=== PATIENT | female | born 1990 | race Caucasian/White ===

== ENCOUNTER 2021-08-14 13:46 | Emergency (ER) | payer OTHER, MEDICAID, SELFPAY ==
[2021-08-14] VITALS (13 sets, daily range): BP systolic 100–115; BP diastolic 58–60; PULSE 66–95; RESP 16–18; TEMP 36.9; O2SAT 95–99; BMI 25.0
--- NOTE | 2021-08-14 15:00 | PC.NURSE ---
Pt states she has seizure-like episodes and her consciousness leaves her body and she feels like she is floating above her body then she focuses her eyes and comes back into her body.
--- NOTE | 2021-08-14 17:20 | ED.SEIZURE ---
HPI - Seizure General Chief Complaint: Seizure Stated Complaint: Thinks she had seizure last night Time Seen by Provider: 08/14/21 16:53 Source: patient Mode of arrival: Ambulatory Limitations: no limitations History of Present Illness HPI Narrative: This is a 31-year-old female who thinks she may have had a seizure last night. She states she was in bed short of falling asleep she thought she had sort of sleep paralysis she has had. But she also but she was shaking 1 point. She states she woke up and she had abrasions or bites on the side of her tongue on each side. She states she woke up with in the morning. She had slept through the night. She did not have any bowel or bladder incontinence. She does not hurt anywhere. No headaches. No chest pain or shortness of breath. No nausea or vomiting. No other GI or urinary symptoms. She has not had any fevers or chills. She has a history of factor 5 Leiden had a stroke related to this. She is not on any daily medications. She did ingest cranium on Wednesday but has not had anything else since then. She uses THC regularly. She denies any recent alcohol use. She denies any surgeries. This was unwitnessed and there was no in that saw any seizure activity and she is not sure even if it was a seizure. She relates that occasionally she will have episodes where she seems like she is short a fluttery and not inside her body and last for 20-30 seconds and resolved. Review of Systems Review of Systems ROS Unobtainable: All systems reviewed & are unremarkable except as noted in HPI and below Patient History Social History Smoking Status: Never smoker Smoking Status: Never smoker alcohol intake frequency: 0-2 drinks per day Substance Use Type: marijuana Exam Narrative Exam Narrative: GEN: well nourished, well appearing female, alert and oriented x 3, patient appears to be in mild distress. HEENT: Atraumatic, pupils are equal round reactive to light, extraocular movements are intact, nares are clear, TMs are clear with no fluid, there is no conjunctival pallor. Throat is clear without any exudates, erythema, tonsillar enlargement or uvular deviation HEART: Regular rate and rhythm without murmur, clicks, rubs. Pulses are equal in upper and lower extremities LUNGS:Lungs clear to auscultation, no wheezes, rales, crackles, chest moves symmetrically ABD:bowel sounds normal, soft, non-tender, no guarding, rebound, rigidity, no masses noted, no hepatosplenomegaly :No CVA tenderness MSCL: Non-tender, no muscle atrophy, muscles strength 5/5 upper and lower extremities, full range of motion, normal gait NEURO:CN 2-12 intact, sensation normal, SKIN: Rash, erythema or other changes. Initial Vital Signs Initial Vital Signs: Vital Signs Temperature 98.5 F 08/14/21 13:51 Pulse Rate 95 H 08/14/21 13:51 Respiratory Rate 16 08/14/21 13:51 Blood Pressure 115/58 L 08/14/21 13:51 Pulse Oximetry 99 08/14/21 13:51 Course Orders Ordered: ED Orders 08/14/21 17:31 CT head/brain wo con Stat EKG-12 Lead Stat 08/14/21 17:55 Urine Drug Screen, Rapid Stat Urine Microscopic Stat 08/14/21 18:00 Basic Metabolic Panel Stat Complete Blood Count AUTO DIFF Stat Ethanol (ETOH) Stat Magnesium Stat Prolactin Stat Vital Signs Vital signs: Vital Signs - 8 hr 08/14/21 13:51 08/14/21 14:53 08/14/21 14:55 Temperature 98.5 F Pulse Rate 95 H 85 84 Respiratory Rate 16 Blood Pressure 115/58 L 107/60 Pulse Oximetry 99 97 98 08/14/21 15:00 08/14/21 15:11 08/14/21 15:30 Temperature Pulse Rate 84 80 80 Respiratory Rate 18 Blood Pressure 107/60 Pulse Oximetry 98 97 97 08/14/21 16:00 08/14/21 16:30 08/14/21 17:00 Temperature Pulse Rate 75 82 81 Respiratory Rate Blood Pressure Pulse Oximetry 96 95 96 08/14/21 17:30 08/14/21 18:00 08/14/21 18:26 Temperature Pulse Rate 76 66 66 Respiratory Rate 17 Blood Pressure 107/60 100/58 L Pulse Oximetry 96 99 97 08/14/21 18:30 Temperature Pulse Rate 72 Respiratory Rate Blood Pressure Pulse Oximetry 97 MDM - Seizure Lab Data Result diagrams: 08/14/21 18:00 08/14/21 18:00 Labs: Lab Results 08/14/21 08/14/21 08/14/21 Range/Units 17:55 18:00 18:00 WBC 6.8 (4.5-11.0) X10^3/uL RBC 4.02 (4.0-5.2) X10^6/uL Hgb 12.3 (12.0-16.0) g/dL Hct 36.4 (36-46) % MCV 90.3 (80-100) fL MCH 30.7 (26-34) PG MCHC 34.0 (30-36) % RDW 13.3 (11.6-14.8) % Plt Count 271 (150-400) X10^3/uL Neut % (Auto) 55.2 (50-75) % Lymph % (Auto) 35.2 (25-40) % [place] % (Auto) 8.0 (3-14) % Eos % (Auto) 1.0 L (2-4) % Baso % (Auto) 0.6 (0-2) % Neut # (Auto) 3800 (5741-4135) /uL Lymph # (Auto) 2400 (0965-2752) /uL [place] # (Auto) 500 (0-900) /uL Eos # (Auto) 100 (0-450) /uL Baso # (Auto) 0 (0-100) /uL Sodium 138 (137-145) mmol/L Potassium 3.7 (3.4-5.1) mmol/L Chloride 108 H (98-107) mmol/L Carbon Dioxide 25 (22-32) mmol/L BUN 14 (7-17) mg/dL Creatinine 0.66 (0.52-1.04) mg/dL Estimated GFR > 60.0 (>60) mL/min BUN/Creatinine Ratio 21.2 (6-22) Glucose 94 (70-100) mg/dL Calcium 9.1 (8.4-10.2) mg/dL Magnesium 2.1 (1.6-2.3) mg/dL Prolactin 14.9 (3.0-18.6) ng/mL U Opiates 300ng/mL cut Negative (Negative) Ur Oxycodone Screen Negative (Negative) Urine Methadone Screen Negative (Negative) Ur Barbiturates Screen Negative (Negative) U Tricyclic Antidepress Negative (Negative) Ur Phencyclidine Scrn Negative (Negative) Ur Amphetamines Screen Negative (Negative) U Methamphetamines Scrn Negative (Negative) Ur MDMA Scrn (Ecstasy) Negative (Negative) U Benzodiazepines Scrn Negative (Negative) Urine Cocaine Screen Negative (Negative) U Marijuana (THC) Screen Positive H (Negative) Ethyl Alcohol < 10 ( - 10) mg/dL Point of Care Testing Test Results Negative Urine Dip Bedside Urine Glucose Negative Bedside Urine Bilirubin - Negative Bedside Urine Ketone + 15 Urine Specific [place] 1.025 Bedside Urine Occult Blood ++ Bedside Urine pH 6.0 Bedside Urine Protein - Negative Bedside Urine Urobilinogen - Negative Bedside Urine Nitrite - Negative Bedside Urine Leukocytes - Negative Esterase Imaging Data CT scan - head: Radiologist's Impression: Launch?[address] [address] [address] Scan Report Signed Patient: Colette Avalos MR#: [id number] : 1990 Acct:[id number] Age/Sex: 31 / F Date of Service: 08/14/21 Loc: ED Accession Number: [id number] ?? Procedure: CT head/brain wo con Ordering Provider: Jessica Alfredo D.O. PROCEDURE:? CT HEAD/BRAIN WO CON ? INDICATIONS:? ? seizure activity last night vs other.? hx CVA ? TECHNIQUE:? Noncontrast 4.5 mm thick angled axial sections acquired from the foramen magnum to the vertex, with coronal and sagittal reformats.? For radiation dose reduction, the following was used:? automated exposure control, adjustment of mA and/or kV according to patient size.? ? COMPARISON:? None. ? FINDINGS:? Image quality:? Excellent.? ? CSF spaces:? Basal cisterns are patent.? No extra-axial fluid collections.? Ventricles are normal in size and shape.? ? Brain:? No midline shift.? No intracranial masses or hemorrhage.? Marmolejo-white matter interface is normal.? There is a focal area of marmolejo matter volume loss and encephalomalacia involving the right parietal region consistent with history of prior stroke. ? Skull and face:? Calvarium and visualized facial bones are intact, without suspicious lesions.? ? Sinuses:? Visualized sinuses and mastoids are clear.? ? IMPRESSION:? 1. No CT evidence of acute process.? 2. Remote right parietal infarct.? ? Dictated by: Elisabeth Lopez M.D. on 08/14/2021 at 18:08 ? ? Approved by: Elisabeth Lopez M.D. on 08/14/2021 at 18:11?? ECG Data Attestation: I personally reviewed and interpreted this ECG as follows: Interpretation: Sinus rhythm, rate of 64 [place] 136 QRS of 78 QTC [address]. No acute ST changes appreciated. MDM Narrative Medical decision making narrative: This is a 31-year-old female who thinks she may have a had a seizure in her sleep last night. She felt like she was still and then had some shaking but was aware. She then went to sleep and woke up this morning and had abrasions on the side of her tongue like she had bit down on it. She has had episodes where she feels like she is not in her body and she is floating around sometimes even while driving but they will last for 20 seconds at the most and then resolve. She has reassuring imaging and labs. She does have a remote history of stroke secondary to Factor 5 Leiden. This was noted on her imaging. She does not have any changes today suggestive of TIA or stroke. Discharge Plan Departure Patient Disposition: Home Clinical Impression: Abrasion of tongue Activity Restrictions/Additional Instructions: Your imaging and labs today are reassuring. Your CT of your head does show a old stroke. I would follow-up with your physician and possibly with Neurology if you continue to have any changes or episodes or concerning events. Referral is included below. Please return for seizure-like activity, new or worsening symptoms, severe headaches, passing out, new numbness, tingling or weakness, facial droop or other new or concerning symptoms. Referrals: Edilson Phan MD [Non-Staff] -
--- NOTE | 2021-08-14 17:31 | DI.CT.S_ITS ---
PROCEDURE: CT HEAD/BRAIN WO CON INDICATIONS: ? seizure activity last night vs other. hx CVA TECHNIQUE: Noncontrast 4.5 mm thick angled axial sections acquired from the foramen magnum to the vertex, with coronal and sagittal reformats. For radiation dose reduction, the following was used: automated exposure control, adjustment of mA and/or kV according to patient size. COMPARISON: None. FINDINGS: Image quality: Excellent. CSF spaces: Basal cisterns are patent. No extra-axial fluid collections. Ventricles are normal in size and shape. Brain: No midline shift. No intracranial masses or hemorrhage. Marmolejo-white matter interface is normal. There is a focal area of marmolejo matter volume loss and encephalomalacia involving the right parietal region consistent with history of prior stroke. Skull and face: Calvarium and visualized facial bones are intact, without suspicious lesions. Sinuses: Visualized sinuses and mastoids are clear. IMPRESSION: 1. No CT evidence of acute process. 2. Remote right parietal infarct. Dictated by: Elisabeth Lopez M.D. on 08/14/2021 at 18:08 Approved by: Elisabeth Lopez M.D. on 08/14/2021 at 18:11
[2021-08-14 18:09] LABS: UR Morphine/Opiate cutoff 300 Negative (Negative); Ur Creatinine Normal (Normal); Ur Specific Gravity Normal (Normal); Urine Amphetamines Negative (Negative); Urine Barbiturates Negative (Negative); Urine Benzodiazepines Negative (Negative); Urine Cocaine Negative (Negative); Urine MDMA Negative (Negative); Urine Methadone Negative (Negative); Urine Methamphetamines Negative (Negative); Urine Oxycodone Negative (Negative); Urine Phencyclidine Negative (Negative); Urine Tetrahydrocannabinol Positive (Negative); Urine Tricyclic Antidepressant Negative (Negative); Urine pH Normal (Normal)
[2021-08-14 18:10] LABS: Add Manual Diff / Slide Review NO; Basophils Absolute Auto 0 /uL (0-100); Basophils Percent Auto 0.6 % (0-2); Eosinophils Absolute Auto 100 /uL (0-450); Hematocrit 36.4 % (36-46); Hemoglobin 12.3 g/dL (12.0-16.0); Lymphocytes Absolute Auto 2400 /uL (1100-4500); Lymphocytes Percent Auto 35.2 % (25-40); Mean Corpuscular Hemoglobin 30.7 PG (26-34); Mean Corpuscular Volume 90.3 fL (80-100); Monocytes Absolute Auto 500 /uL (0-900); Neutrophils Absolute Auto 3800 /uL (1500-7000); Neutrophils Percent Auto 55.2 % (50-75); Platelet Count 271 X10^3/uL (150-400); Red Blood Cell Count 4.02 X10^6/uL (4.0-5.2); Red Cell Distribution Width 13.3 % (11.6-14.8); White Blood Cell Count 6.8 X10^3/uL (4.5-11.0)
[2021-08-14 18:19] LABS: BUN Creatinine Ratio 21.2 (6-22); Blood Urea Nitrogen 14 mg/dL (7-17); Calcium 9.1 mg/dL (8.4-10.2); Carbon Dioxide 25 mmol/L (22-32); Chloride 108 mmol/L (98-107); Estimated Glomerular Filt Rate > 60.0 mL/min (>60); Ethanol (ETOH) < 10 mg/dL; Glucose 94 mg/dL (70-100); HEMOLYSIS < 15 (0-50); Magnesium 2.1 mg/dL (1.6-2.3); Potassium 3.7 mmol/L (3.4-5.1); Sodium 138 mmol/L (137-145)
[2021-08-14 18:35] LABS: Prolactin 14.9 ng/mL (3.0-18.6)
[2021-08-14 20:03] LABS: Bacteria Urine None Seen; Culture Indicated Urine Cult Not Indicated; RBC Urine None Seen (0-5/HPF); Squamous Epithelial Cell Urine 0-1 /HPF (0-5/HPF); WBC Urine 0-1/HPF (0-5/HPF)
== END 2021-08-14 19:14 | disposition home or self-care (01) ==
PROVIDERS: Emergency Provider Emergency Medicine
DX: S00.512A Abrasion of oral cavity, initial encounter (principal); R03.1 Nonspecific low blood-pressure reading; X58.XXXA Exposure to other specified factors, initial encounter; Z86.73 Personal history of transient ischemic attack (TIA), and cerebral infarction without residual deficits
CPT/HCPCS: 36415; 70450; 80048; 80305; 80320; 81003; 81015; 81025; 83735; 84146; 85025; 93005; 99283; 99284

== ENCOUNTER → 2022-10-27 11:21 | Outpatient (CLI) | payer OTHER, MEDICAID, SELFPAY | PROVIDERS: Visit Provider Physician Assistant | DX: T30.0 Burn of unspecified body region, unspecified degree (principal) | CPT/HCPCS: 87070; 87075; 87205 ==

== ENCOUNTER → 2023-07-07 14:02 | Outpatient (CLI) | payer OTHER, MEDICAID, SELFPAY ==
[2023-07-07 19:55] LABS: Add Manual Diff / Slide Review NO; Basophils Absolute Auto 100 /uL (0-100); Basophils Percent Auto 0.9 % (0-2); Eosinophils Absolute Auto 100 /uL (0-450); Eosinophils Percent Auto 1.2 % (2-4); Hematocrit 40.8 % (36-46); Hemoglobin 13.7 g/dL (12.0-16.0); Lymphocytes Absolute Auto 2600 /uL (1100-4500); Lymphocytes Percent Auto 40.5 % (25-40); Mean Corpuscular HGB Conc 33.6 % (30-36); Mean Corpuscular Hemoglobin 30.9 PG (26-34); Mean Corpuscular Volume 91.8 fL (80-100); Monocytes Absolute Auto 500 /uL (0-900); Monocytes Percent Auto 7.3 % (3-14); Neutrophils Absolute Auto 3200 /uL (1500-7000); Neutrophils Percent Auto 50.1 % (50-75); Platelet Count 356 X10^3/uL (150-400); Red Blood Cell Count 4.45 X10^6/uL (4.0-5.2); White Blood Cell Count 6.5 X10^3/uL (4.5-11.0)
[2023-07-07 20:08] LABS: Alanine Aminotransferase 18 IU/L (<35); Albumin 4.6 g/dL (3.5-5.0); Albumin Globulin Ratio 1.5 (1.0-2.8); Alkaline Phosphatase 44 U/L (38-126); Aspartate Aminotransferase 26 IU/L (14-36); BUN Creatinine Ratio 22.2 (6-22); Bilirubin Total 0.6 mg/dL (0.2-1.3); Blood Urea Nitrogen 14 mg/dL (7-17); Calcium 10.1 mg/dL (8.4-10.2); Carbon Dioxide 27 mmol/L (22-32); Chloride 100 mmol/L (98-107); Estimated Glomerular Filt Rate > 60 mL/min (>60); Glucose 84 mg/dL (70-100); HEMOLYSIS < 15 (0-50); Sodium 136 mmol/L (137-145); Total Protein 7.6 g/dL (6.3-8.2)
[2023-07-07 20:33] LABS: Free T3, Triiodothyronine Free 3.97 pg/mL (2.77-5.27); Free T4, Direct Thyroxine 1.04 ng/dL (0.78-2.19)
[2023-07-07 20:46] LABS: Ferritin 34 ng/mL (6-137)
[2023-07-07 20:47] LABS: Thyroid Stimulating Hormone 0.964 uIU/mL (0.47-4.68)
== END ==
PROVIDERS: Visit Provider Naturopath
DX: Z13.0 Encounter for screening for diseases of the blood and blood-forming organs and certain disorders involving the immune mechanism (principal); Z13.29 Encounter for screening for other suspected endocrine disorder; R10.9 Unspecified abdominal pain; R19.7 Diarrhea, unspecified; R19.5 Other fecal abnormalities; Z13.1 Encounter for screening for diabetes mellitus; B35.6 Tinea cruris
CPT/HCPCS: 80053; 82728; 84439; 84443; 84481; 85025

== ENCOUNTER → 2024-09-26 10:16 | Outpatient (CLI) | payer OTHER, SELFPAY | PROVIDERS: PCP Physician Assistant Medical; Visit Provider Physician Assistant | DX: J02.9 Acute pharyngitis, unspecified (principal) | CPT/HCPCS: 87070; 87880 ==

== ENCOUNTER 2024-11-19 09:00 | Emergency (ER) | payer OTHER, SELFPAY ==
[2024-11-19 09:27] VITALS: BP 116/71; PULSE 79; RESP 16; TEMP 36.6; O2SAT 99; BMI 24.7
--- NOTE | 2024-11-19 09:28 | ED_ITS ---
HPI - Seizure General Chief Complaint: Seizure Stated Complaint: seizure during the night Time Seen by Provider: 11/19/24 09:13 History of Present Illness HPI Narrative: Patient is a 34-year-old female presenting today with possible seizure last night. She feels like she was having up sounds seizures where she was staring off into space in her eyes or fluttering. This has been going on for some time she says that her friends have noticed this. Last night she felt that she had a shaking episode she was not aware. She does report that she woke up in her bed was covered urine. She says that she has been under an intense amount of stress lately she smoked 2 cigarettes prior to going to bed and was throwing up beforehand. Denies any alcohol use. She does not typically smoke cigarettes. 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 She was not taking aspirin she has not been followed. He has been trying to get into a neurologist but the closest they can get her in is February She was seen evaluated here in 2020 with something similar but sounds like it was more of a sleep paralysis. Related Data Allergies Allergy/AdvReac Type Severity Reaction Status Date / Time clindamycin [From Cleocin] Allergy Mild Rash Verified 11/19/24 09:27 Patient History Social History Smoking Status: Never smoker Smoking Status: Never smoker alcohol intake frequency: 0-2 drinks per day Exam Initial Vital Signs Initial Vital Signs: Vital Signs Temperature 97.9 F 11/19/24 09:27 Pulse Rate 79 11/19/24 09:27 Respiratory Rate 16 11/19/24 09:27 Blood Pressure 116/71 11/19/24 09:27 Pulse Oximetry 99 11/19/24 09:27 Oxygen Delivery Method Room Air 11/19/24 09:27 GENERAL: Alert pleasant 34-year-old female and in no acute distress. HEENT: Head atraumatic,EOMI, pupils reactive, face symmetric, moist mucous membranes, she did bite her tongue on the right side though active bleeding CARDIOVASCULAR: Regular rate and rhythm without murmurs, rubs or gallops. RESPIRATORY: Breath sounds equal bilaterally, no wheezes rales or rhonchi. ABDOMEN: Soft, nontender. Normoactive bowel sounds all 4 quadrants. No guarding or rebound. EXTREMITIES: Normal range of motion, no clubbing or edema. Neurovascularly intact NEUROLOGICAL: Alert and oriented x4.Normal gait and speech. Cranial nerves II through XII grossly intact. [employer] strength equal bilaterally SKIN: Warm, dry, no laceration, no petechiae, no rashes or lesions. Course Orders Ordered: ED Orders 11/19/24 09:23 CBC Auto Diff [Complete Blood Count AUTO DIFF] Stat CMP [Comprehensive Metabolic Panel] Stat 11/19/24 09:37 EKG-12 Lead Stat 11/19/24 09:42 CT head/brain wo con Stat 11/19/24 11:04 Urine Drug Screen, Rapid Stat Vital Signs Vital signs: Vital Signs - 8 hr 11/19/24 09:27 11/19/24 11:48 11/19/24 12:00 Temperature 97.9 F 98.2 F Pulse Rate 79 75 85 Respiratory Rate 16 16 16 Blood Pressure 116/71 110/69 144/79 H Pulse Oximetry 99 97 97 Oxygen Delivery Method Room Air Room Air Room Air MDM - Seizure Lab Data 11/19/24 09:23 11/19/24 09:23 Labs: Lab Results 11/19/24 11/19/24 Range/Units 09:23 11:04 WBC 10.3 (4.5-11.0) X10^3/uL RBC 4.34 (4.0-5.2) X10^6/uL Hgb 13.4 (12.0-16.0) g/dL Hct 39.6 (36-46) % MCV 91.4 (80-100) fL MCH 31.0 (26-34) PG MCHC 33.9 (30-36) % RDW 12.7 (11.6-14.8) % Plt Count 371 (150-400) X10^3/uL Neut % (Auto) 68.7 (50-75) % Lymph % (Auto) 21.3 L (25-40) % [place] % (Auto) 9.0 (3-14) % Eos % (Auto) 0.1 L (2-4) % Baso % (Auto) 0.9 (0-2) % Neut # (Auto) 7100 H (0279-4522) /uL Lymph # (Auto) 2200 (6093-2915) /uL [place] # (Auto) 900 (0-900) /uL Eos # (Auto) 0 (0-450) /uL Baso # (Auto) 100 (0-100) /uL Sodium 136 L (137-145) mmol/L Potassium 3.9 (3.4-5.1) mmol/L Chloride 103 (98-107) mmol/L Carbon Dioxide 22 (22-32) mmol/L BUN 9 (7-17) mg/dL Creatinine 0.61 (0.52-1.04) mg/dL Estimated GFR > 60 (>60) mL/min BUN/Creatinine Ratio 14.8 (6-22) Glucose 108 H (70-100) mg/dL Calcium 9.3 (8.4-10.2) mg/dL Total Bilirubin 0.7 (0.2-1.3) mg/dL AST 37 H (14-36) IU/L ALT 25 (<35) IU/L Alkaline Phosphatase 38 (38-126) U/L Total Protein 7.5 (6.3-8.2) g/dL Albumin 4.6 (3.5-5.0) g/dL Globulin 2.9 (1.7-4.1) g/dL Albumin/Globulin Ratio 1.6 (1.0-2.8) U Opiates 300ng/mL cut Negative (Negative) Ur Oxycodone Screen Negative (Negative) Urine Methadone Screen Negative (Negative) Ur Barbiturates Screen Negative (Negative) U Tricyclic Antidepress Negative (Negative) Ur Phencyclidine Scrn Negative (Negative) Ur Amphetamines Screen Negative (Negative) U Methamphetamines Scrn Negative (Negative) Ur MDMA Scrn (Ecstasy) Negative (Negative) U Benzodiazepines Scrn Negative (Negative) Urine Cocaine Screen Negative (Negative) U Marijuana (THC) Screen Positive H (Negative) Urine pH Normal (Normal) Urine Specific [place] Normal (Normal) Ur Creatinine Normal (Normal) Point of Care Testing Test Results Negative Urine Dip Bedside Urine Glucose Negative Bedside Urine Bilirubin - Negative Bedside Urine Ketone - Negative Urine Specific [place] 1.010 Bedside Urine Occult Blood - Negative Bedside Urine pH 6.0 Bedside Urine Protein - Negative Bedside Urine Urobilinogen - Negative Bedside Urine Nitrite - Negative Bedside Urine Leukocytes - Negative Esterase Imaging Data CT scan - head: Radiologist's Impression: PROCEDURE: CT HEAD/BRAIN WO CON INDICATIONS: new onset seizure TECHNIQUE: Noncontrast 4.5 mm thick angled axial sections acquired from the foramen magnum to the vertex, with coronal and sagittal reformats. For radiation dose reduction, the following was used: automated exposure control, adjustment of mA and/or kV according to patient size. COMPARISON: [facility], CT, CT HEAD/BRAIN WO CON, 08/14/2021, 17:38. FINDINGS: Image quality: Diagnostic. CSF spaces: Basal cisterns are patent. No extra-axial fluid collections. Ventricles are normal in size and shape. Brain: No midline shift. No intracranial masses or hemorrhage. Marmolejo-white matter interface is normal. Right parietal encephalomalacia is consistent with the given history of prior stroke. Skull and face: Calvarium and visualized facial bones are intact, without suspicious lesions. Sinuses: Visualized sinuses and mastoids are clear. IMPRESSION: No acute intracranial pathology. Dictated by: Marily Andres M.D. on 11/19/2024 at 9:04 Approved by: Marily Andres M.D. on 11/19/2024 at 9:06 ECG Data Attestation: I personally reviewed and interpreted this ECG as follows: Prior ECG tracings: available for review Interpretation: Normal sinus rhythm rate 80 CT interval 130 QRS [address] changes similar to previous EKGs MDM Narrative Medical decision making narrative: MDM CC: Seizure Complicating co-morbidities: Factor 5 Leiden with history of cavernous thrombosis not taking aspirin Medical records reviewed: Previous ED visit reviewed in 2020 Differential considered: Exam documented above, pertinent findings include: Alert awake 34-year-old female who does have evidence of tongue injury. She was neurologically intact Lab Test results independently reviewed as above. Pertinent findings: CBC no anemia or leukocytosis CMP no electrolyte abnormalities no MERVAT AST slightly elevated at 37 Urinalysis negative for and infection UDS is positive for marijuana Independently reviewed EKG as above No arrhythmia or prolonged QTC Imaging studies independently reviewed: Head CT no intracranial process Treatments: None Re-evaluations: Patient remained stable Discussion: Patient 34-year-old female who presents today after seizure. It sound like she had a tonic-clonic seizure. She had urinary incontinence head there is evidence of tongue biting. Electrolytes head CT and ED workup overall reassuring. She has not having any focal deficits or dizziness to suggest cavernous thrombus. She denies alcohol use do not think withdrawal seizure. It sounds like she has been having some sort of up sounds or small seizures. She has an appointment with neurology but not until February. We talked about no driving until cleared by Neurology. Hard to say what it has been going on at home. She did not have a seizure in 2020 sounds like it was sleep paralysis she did not have any of these other symptoms at that time. This does sound like a true 1st seizure. No indications to start antiseizure medication at this time but if she has a recurrent seizure may require treatment Discharge Plan Departure Patient Disposition: Home Clinical Impression: Seizure Instructions: DI for Seizure Disorder -- Adult Activity Restrictions/Additional Instructions: NO DRIVING UNTIL CLEARED BY NEUROLOGY *You have been diagnosed with seizure *What to do: It does sound like you had a seizure today. Blood work and head CT overall reassuring. I would avoid alcohol make she was sleeping and eating regularly. At this time no seizure medication however if you should have a recurrent seizure please return to ED *Continue to take medications as directed Aspirin daily *Follow up with your primary care provider in 2-3 days or call [phone] *Return to ER if you should have recurrent seizure, or any new, worsening or concerning symptoms Referrals: Lizzette Wells PA-C [Primary Care Provider] - Stand Alone Forms: Patient Portal/API/Survey
--- NOTE | 2024-11-19 09:37 | EKG_ITS ---
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
--- NOTE | 2024-11-19 09:42 | DI.CT.S_ITS ---
PROCEDURE: CT HEAD/BRAIN WO CON INDICATIONS: new onset seizure TECHNIQUE: Noncontrast 4.5 mm thick angled axial sections acquired from the foramen magnum to the vertex, with coronal and sagittal reformats. For radiation dose reduction, the following was used: automated exposure control, adjustment of mA and/or kV according to patient size. COMPARISON: [facility], CT, CT HEAD/BRAIN WO CON, 08/14/2021, 17:38. FINDINGS: Image quality: Diagnostic. CSF spaces: Basal cisterns are patent. No extra-axial fluid collections. Ventricles are normal in size and shape. Brain: No midline shift. No intracranial masses or hemorrhage. Marmolejo-white matter interface is normal. Right parietal encephalomalacia is consistent with the given history of prior stroke. Skull and face: Calvarium and visualized facial bones are intact, without suspicious lesions. Sinuses: Visualized sinuses and mastoids are clear. IMPRESSION: No acute intracranial pathology. Dictated by: Marily Andres M.D. on 11/19/2024 at 9:04 Approved by: Marily Andres M.D. on 11/19/2024 at 9:06
[2024-11-19 09:52] LABS: Add Manual Diff / Slide Review NO; Basophils Absolute Auto 100 /uL (0-100); Basophils Percent Auto 0.9 % (0-2); Eosinophils Absolute Auto 0 /uL (0-450); Eosinophils Percent Auto 0.1 % (2-4); Hematocrit 39.6 % (36-46); Hemoglobin 13.4 g/dL (12.0-16.0); Lymphocytes Absolute Auto 2200 /uL (1100-4500); Lymphocytes Percent Auto 21.3 % (25-40); Mean Corpuscular HGB Conc 33.9 % (30-36); Mean Corpuscular Volume 91.4 fL (80-100); Monocytes Absolute Auto 900 /uL (0-900); Neutrophils Absolute Auto 7100 /uL (1500-7000); Neutrophils Percent Auto 68.7 % (50-75); Platelet Count 371 X10^3/uL (150-400); Red Blood Cell Count 4.34 X10^6/uL (4.0-5.2); Red Cell Distribution Width 12.7 % (11.6-14.8); White Blood Cell Count 10.3 X10^3/uL (4.5-11.0)
[2024-11-19 10:02] LABS: Alanine Aminotransferase 25 IU/L (<35); Albumin 4.6 g/dL (3.5-5.0); Albumin Globulin Ratio 1.6 (1.0-2.8); Alkaline Phosphatase 38 U/L (38-126); Aspartate Aminotransferase 37 IU/L (14-36); BUN Creatinine Ratio 14.8 (6-22); Bilirubin Total 0.7 mg/dL (0.2-1.3); Blood Urea Nitrogen 9 mg/dL (7-17); Calcium 9.3 mg/dL (8.4-10.2); Carbon Dioxide 22 mmol/L (22-32); Chloride 103 mmol/L (98-107); Estimated Glomerular Filt Rate > 60 mL/min (>60); Globulin 2.9 g/dL (1.7-4.1); Glucose 108 mg/dL (70-100); HEMOLYSIS 17 (0-50); Potassium 3.9 mmol/L (3.4-5.1); Sodium 136 mmol/L (137-145); Total Protein 7.5 g/dL (6.3-8.2)
[2024-11-19 11:20] LABS: UR Morphine/Opiate cutoff 300 Negative (Negative); Ur Creatinine Normal (Normal); Ur Specific Gravity Normal (Normal); Urine Amphetamines Negative (Negative); Urine Barbiturates Negative (Negative); Urine Benzodiazepines Negative (Negative); Urine Cocaine Negative (Negative); Urine MDMA Negative (Negative); Urine Methadone Negative (Negative); Urine Methamphetamines Negative (Negative); Urine Oxycodone Negative (Negative); Urine Phencyclidine Negative (Negative); Urine Tetrahydrocannabinol Positive (Negative); Urine Tricyclic Antidepressant Negative (Negative); Urine pH Normal (Normal)
[2024-11-19 11:48] VITALS: BP 110/69; PULSE 75; RESP 16; TEMP 36.8; O2SAT 97
[2024-11-19 12:00] VITALS: BP 144/79; PULSE 85; RESP 16; O2SAT 97
== END 2024-11-19 12:01 | disposition home or self-care (01) ==
PROVIDERS: Emergency Provider Emergency Medicine; PCP Physician Assistant
DX: R56.9 Unspecified convulsions (principal); D68.51 Activated protein C resistance; Z86.718 Personal history of other venous thrombosis and embolism
CPT/HCPCS: 70450; 80053; 80305; 81003; 81025; 85025; 93005; 99282; 99284